=== PATIENT | female | born 1960 | race Caucasian/White ===

== ENCOUNTER → 2022-02-12 14:33 | Outpatient (CLI) | payer OTHER, MEDICAID, SELFPAY | PROVIDERS: Visit Provider Registered Nurse | DX: R10.9 Unspecified abdominal pain (principal) | CPT/HCPCS: 81002 ==

== ENCOUNTER → 2022-03-24 17:26 | Outpatient (CLI) | payer OTHER, MEDICAID, SELFPAY ==
[2022-03-24 18:13] LABS: Influenza A - CEPHEID Flu A NEGATIVE (NEGATIVE); Influenza B - CEPHEID Flu B NEGATIVE (NEGATIVE); Respiratory Syncytial Virus Negative (Negative)
[2022-03-24 18:23] LABS: COVID-19 CEPHEID 4-PLEX PCR Negative (Negative)
== END ==
PROVIDERS: Visit Provider Nurse Practitioner Family
DX: R05.9 Cough, unspecified (principal)
CPT/HCPCS: 0241U

== ENCOUNTER → 2022-03-24 17:35 | Outpatient (CLI) | payer OTHER, MEDICAID, SELFPAY ==
--- NOTE | 2022-03-24 17:41 | DI.RAD.S_ITS ---
PROCEDURE: XR CHEST 2V INDICATIONS: Cough TECHNIQUE: 2 views of the chest were acquired. COMPARISON: [facility], , CHEST 2 VIEW, 03/14/2016, 15:38. FINDINGS: Surgical changes and devices: None. Lungs and pleura: Lungs are clear. No pleural effusions or pneumothorax. Mediastinum: Mediastinal contours are normal. Heart size is normal. Bones and chest wall: No suspicious bony abnormalities. Soft tissues appear unremarkable. IMPRESSION: No acute cardiopulmonary pathology. Dictated by: Himanshu Dasilva M.D. on 03/25/2022 at 8:36 Approved by: Himanshu Dasilva M.D. on 03/25/2022 at 8:36
== END ==
PROVIDERS: PCP Physician Assistant; Referring Provider Nurse Practitioner Family; Visit Provider Nurse Practitioner Family
DX: R05.9 Cough, unspecified (principal)
CPT/HCPCS: 0241U; 71046

== ENCOUNTER 2022-04-21 15:53 | Emergency (ER) | payer OTHER, MEDICAID, SELFPAY ==
[2022-04-21 15:58] VITALS: BP 142/90; PULSE 81; RESP 22; TEMP 36.1; O2SAT 98; BMI 28.4
[2022-04-21 16:44] LABS: Bacteria Urine None Seen; Culture Indicated Urine Cult Not Indicated; RBC Urine None Seen (0-5/HPF); WBC Urine None Seen (0-5/HPF)
[2022-04-21 16:49] LABS: Influenza A - CEPHEID Flu A NEGATIVE (NEGATIVE); Influenza B - CEPHEID Flu B NEGATIVE (NEGATIVE); Respiratory Syncytial Virus Negative (Negative)
[2022-04-21 16:55] LABS: COVID-19 CEPHEID 4-PLEX PCR Negative (Negative)
--- NOTE | 2022-04-21 16:59 | ED_ITS ---
HPI - Nausea/Vomiting/Diarrhea <ARCHANA MarinelliP - Last Filed: 04/21/22 18:47> General Chief complaint: Nausea/Vomiting/Diarrhea Stated complaint: nausea/ears ringing/chills Time Seen by Provider: 04/21/22 16:47 History of Present Illness HPI Narrative: This is a 61-year-old female who presents to the emergency department complaining of 3 days of worsening nausea, vomiting, chills, with her ears ringing. She states that she used meth a few days ago, was clean previously but states that she may have meth withdrawals. She denies any symptoms like this with the nausea and spasms of her abdomen. She endorses that her vaginal discharge has been abnormal, she has mild vaginal itching, denies dysuria or urinary frequency but has lower pelvic discomfort with cramping. She states that she has a history of fibroids and tumors, denies any bleeding, denies any difficulty urinating, having bowel movements, denies vomiting. She denies fever. She denies flank pain, chest pain, shortness of breath or wheezing. Patient states that she no longer takes Abilify for her mood, she now takes Zyprexa at night with clonidine for her anxiety, states that she had a prescription of lorazepam times 10 tabs for last month but she use them all and is requesting a 1 time dose of something for anxiety. Related Data Home Medications Medication Instructions Recorded Confirmed aripiprazole 15 mg tablet (Abilify) 15 mg PO Q DAY ##0 03/22/12 03/24/22 quetiapine 50 mg tablet,extended 200 mg PO HS ##0 12/03/12 03/24/22 release 24 hr (Seroquel XR) Previous Rx's Medication Instructions Recorded albuterol sulfate 90 mcg/actuation 0 puff INH Q4HP PRN #1 ea 03/14/16 aerosol inhaler (Ventolin HFA) azithromycin 250 mg tablet 250 mg PO SEE INSTRUCTIONS #6 tabs 03/14/16 (Zithromax) diclofenac sodium 1 % topical gel 2 g topical QID PRN back pain #100 02/12/22 (Voltaren Arthritis Pain) grams methocarbamol 500 mg tablet 500 mg PO TID PRN muscle spasms 02/12/22 #20 tabs lorazepam 1 mg tablet 0.5 - 1 mg PO BID PRN anxiety #10 04/21/22 tabs omeprazole 20 mg capsule,delayed 20 mg PO DAILY #30 caps 04/21/22 release ondansetron 4 mg disintegrating 4 mg PO Q8H PRN nausea and 04/21/22 tablet vomiting #14 tabs sucralfate 1 gram tablet (Carafate) 1 g PO BID PRN upper abdominal 04/21/22 pain/burning #60 tabs Allergies Allergy/AdvReac Type Severity Reaction Status Date / Time codeine Allergy Unknown Unverified 04/21/22 16:02 hydrocodone Allergy Unknown ITCHY Unverified 04/21/22 16:02 Review of Systems <TRACEY Marinelli - Last Filed: 04/21/22 18:47> Review of Systems Narrative: Review of systems is negative for acute abnormalities unless otherwise noted in HPI Patient History <TRACEY Marinelli - Last Filed: 04/21/22 18:47> Social History Smoking Status: Never smoker Smoking Status: Never smoker Substance Use Type: marijuana and methamphetamine Exam <TRACEY Marinelli - Last Filed: 04/21/22 18:47> Narrative Exam Narrative: Reviewed vitals signs and nursing notes. General: cooperative, in no acute distress, well groomed, patient is anxious and tearful and fidgety HEENT: symmetrical facial expressions, moist mucous membranes Cardiovascular: regular rate and rhythm, no peripheral edema, warm extremities Respiratory: normal effort, able to speak in complete sentences, without wheezing, stridor, or abnormal breath sounds. No retractions or tachypnea. GI: abdomen soft, nontender to palpation, nondistended, without masses, rebound tenderness or exquisite tenderness with exam. [address] Light: Scant amount of vaginal secretions, obtained wet mount and is pending, no erythema or rash, MSK: moves all extremities, neurovascularly intact, no weakness, normal tone Skin: brisk capillary refill, without pallor or erythema, no rash Neuro: normal speech and cognition, A&O x3, ambulatory, clear speech Psych: mental status is anxious, pleasant and cooperative Initial Vital Signs Initial Vital Signs: Vital Signs Temperature 97.0 F L 04/21/22 15:58 Pulse Rate 81 04/21/22 15:58 Respiratory Rate 22 04/21/22 15:58 Blood Pressure 142/90 H 11/23/22 15:58 Pulse Oximetry 98 04/21/22 15:58 Oxygen Delivery Method 04/21/22 15:58 <Aristides Bauer DO - Last Filed: 04/22/22 01:51> Initial Vital Signs Initial Vital Signs: Vital Signs Temperature 97.0 F L 04/21/22 15:58 Pulse Rate 81 04/21/22 15:58 Respiratory Rate 22 04/21/22 15:58 Blood Pressure 142/90 H 04/21/22 15:58 Pulse Oximetry 98 04/21/22 15:58 Oxygen Delivery Method 04/21/22 15:58 Course <TRACEY Marinelli - Last Filed: 04/21/22 18:47> Orders Ordered: ED Orders 04/21/22 16:58 Wet Prep Tric BV Janel Stat Discontinued Medications Al Hydrox/Mg Hydrox/Simethicone 20 ml/ Lidocaine HCl 15 ml 0 ml PO NOW ONE Stop: 04/21/22 17:24 Last Admin: 04/21/22 17:37 Dose: 35 ml Documented By: YOLANDA Lorazepam (Lorazepam 0.5 Mg Tablet) 1 mg PO NOW ONE Stop: 04/21/22 16:59 Last Admin: 04/21/22 17:16 Dose: 1 mg Documented By: YOLANDA Ondansetron HCl (Ondansetron 4 Mg Odt) 4 mg SL NOW ONE Stop: 04/21/22 17:00 Last Admin: 04/21/22 17:16 Dose: 4 mg Documented By: YOLANDA Pantoprazole Sodium (Pantoprazole Dr 20 Mg Tablet) 20 mg PO NOW ONE Stop: 04/21/22 17:24 Last Admin: 04/21/22 17:37 Dose: 20 mg Documented By: YOLANDA Vital Signs Vital signs: Vital Signs - 8 hr 04/21/22 15:58 Temperature 97.0 F L Pulse Rate 81 Respiratory Rate 22 Blood Pressure 142/90 H Pulse Oximetry 98 Oxygen Delivery Method Room Air <Aristides Bauer DO - Last Filed: 04/22/22 01:51> Orders Ordered: ED Orders 04/21/22 16:58 Wet Prep Tric BV Janel Stat Discontinued Medications Al Hydrox/Mg Hydrox/Simethicone 20 ml/ Lidocaine HCl 15 ml 0 ml PO NOW ONE Stop: 11/23/22 17:24 Last Admin: 04/21/22 17:37 Dose: 35 ml Documented By: YOLANDA Lorazepam (Lorazepam 0.5 Mg Tablet) 1 mg PO NOW ONE Stop: 04/21/22 16:59 Last Admin: 04/21/22 17:16 Dose: 1 mg Documented By: YOLANDA Ondansetron HCl (Ondansetron 4 Mg Odt) 4 mg SL NOW ONE Stop: 04/21/22 17:00 Last Admin: 04/21/22 17:16 Dose: 4 mg Documented By: YOLANDA Pantoprazole Sodium (Pantoprazole Dr 20 Mg Tablet) 20 mg PO NOW ONE Stop: 04/21/22 17:24 Last Admin: 04/21/22 17:37 Dose: 20 mg Documented By: YOLANDA Vital Signs Vital signs: Vital Signs - 8 hr 04/21/22 15:58 Temperature 97.0 F L Pulse Rate 81 Respiratory Rate 22 Blood Pressure 142/90 H Pulse Oximetry 98 Oxygen Delivery Method Room Air MDM - Nausea/Vomiting/Diarrhea <TRACEY Marinelli - Last Filed: 04/21/22 18:47> Lab Data Labs: Lab Results 04/21/22 04/21/22 04/21/22 Range/Units 16:04 16:17 16:17 Urine RBC None seen (0-5/HPF) Urine WBC None seen (0-5/HPF) Urine Bacteria None seen (None) Ur Culture Indicated? Cult not indicated Ur Chlamydia DNA (PCR) Not detected SARS-CoV-2 (PCR) Negative (Negative) Influenza A (RT-PCR) Flu a negative (NEGATIVE) Influenza B (RT-PCR) Flu b negative (NEGATIVE) RSV (PCR) Negative (Negative) N gonorrhoeae DNA (PCR) Not detected Urine Dip Bedside Urine Glucose Negative Bedside Urine Bilirubin - Negative Bedside Urine Ketone - Negative Urine Specific Granite 1.010 Bedside Urine Occult Blood + Bedside Urine pH 6.0 Bedside Urine Protein - Negative Bedside Urine Urobilinogen - Negative Bedside Urine Nitrite - Negative Bedside Urine Leukocytes - Negative Esterase MDM Narrative Medical decision making narrative: This is a 61-year-old female who presents to the emergency department complaining of anxiety, epigastric pain, abdominal cramping, 3 days with vomiting after using methamphetamine. Patient states that she is concerned about ovarian cancer as she has a history of this but denies any abnormal vaginal discharge, pelvic pain, changes to her stool, or worsening pain. UA was negative for infection, vaginal exam was negative for abnormal finding on the wet mount, gonorrhea and chlamydia are still pending. Patient was given a GI cocktail which she stated helped her symptoms. She is a smoker, drinks coffee, states that she is been dry heaving and feeling nauseated with any food. She was given Protonix as well with Zofran and her nausea improved. Gonorrhea and chlamydia came back negative, respiratory panel was negative for COVID, influenza a, B and RSV. Patient was able to tolerate p.o. prior to leaving and states that her symptoms have improved overall. This is most likely gastritis or gastric ulcer but could also be esophageal ulcer, H pylori, GERD, viral syndrome, withdrawals from methamphetamine, panic attack, exacerbation of anxiety, acute cystitis, pelvic inflammatory disease, cholecystitis, pancreatitis, colitis or other intra-abdominal pathology. Patient denies fever, chills denies any stool changes. I encourage patient to follow-up with her psychiatrist about her medications, she was given a 10 dose supply of lorazepam as she states she ran out of hers and was having a panic attack while she was here today. Her epigastric pain is most likely related to gastric ulcer or gastritis, it could also be H pylori and I encouraged her to follow-up with her PCP for outpatient testing as needed and for improvement of her symptoms. She understands to come back to the emergency department if she has worsening, not tolerating p.o., fever or chills. No peritoneal signs on abdominal exam. Patient remains p.o. tolerant. Serial abdominal exam without increase in abdominal pain. Given history and exam, low suspicion for acute abdominal process, such as acute cholecystitis, pancreatitis, perforated viscus, atypical appendicitis, colitis, diverticulitis or torsion. Extensive conversation about ER return precautions and need for close follow-up. Patient is appropriate and amenable to discharge home. Vital signs are stable on repeat examination is unremarkable. Patient has been informed of results. Patient has been given strict return to ER precautions for any new or worsening symptoms. Patient understands to follow up closely with outpatient providers as instructed. Patient understands plan and agrees to discharge home. All questions and concerns answered at this time. <Aristides Bauer, DO - Last Filed: 04/22/22 01:51> Lab Data Labs: Lab Results 1104/21/22 04/21/22 Range/Units 16:04 16:17 16:17 Urine RBC None seen (0-5/HPF) Urine WBC None seen (0-5/HPF) Urine Bacteria None seen (None) Ur Culture Indicated? Cult not indicated Ur Chlamydia DNA (PCR) Not detected SARS-CoV-2 (PCR) Negative (Negative) Influenza A (RT-PCR) Flu a negative (NEGATIVE) Influenza B (RT-PCR) Flu b negative (NEGATIVE) RSV (PCR) Negative (Negative) N gonorrhoeae DNA (PCR) Not detected Urine Dip Bedside Urine Glucose Negative Bedside Urine Bilirubin - Negative Bedside Urine Ketone - Negative Urine Specific Granite 1.010 Bedside Urine Occult Blood + Bedside Urine pH 6.0 Bedside Urine Protein - Negative Bedside Urine Urobilinogen - Negative Bedside Urine Nitrite - Negative Bedside Urine Leukocytes - Negative Esterase Discharge Plan Departure Patient Disposition: Home Clinical Impression: Anxiety, Acute epigastric pain Nausea & vomiting Qualifiers: Vomiting type: unspecified Qualified Code(s): R11.2 - Nausea with vomiting, unspecified Activity Restrictions/Additional Instructions: *You have been diagnosed with epigastric pain which is most likely related to heartburn, it could be gastritis or a gastric/esophageal, or duodenal ulcer. Ulcers develop with exposure to increased acid, this happens to people who smoke, drink caffeine, are under lot of stress, and it sounds like you have had all of the symptoms. If you develop fever and chills, worsening pain despite using these medications or unable to keep anything down, please come back to the emergency department for a further evaluation. At that point we would do blood work and imaging. I encourage you to follow-up with Vonnie Garcia as she will be the one to get you into testing for a stomach ulcer. Please stay hydrated, use Zofran as needed for nausea and vomiting, take ome prazole 1st thing in the morning every day, please use Ativan as needed for anxiety and Carafate to help coat your stomach when it is painful. Avoid using ibuprofen in the near future. *What to do: *Please continue to take your regular medications as directed. [ x New medication prescriptions sent to your pharmacy: [ [facility]] [ ] New medication written as a paper prescription [ ] No new medications given *Please follow up with your primary care provider in 2-3 days, call for an appointment. Let them know you were seen in the Emergency Department and that we asked that you be seen for follow-up. We will electronically transmit a record of today's note if your PCP is in our system *If you do not have a primary care provider please contact [phone] to establish care with one of the [facility] primary care providers. *Return to Emergency Department if you should have any new, worsening, or concerning symptoms, such as [fever greater than 101F, chills, worsening pain, persistent vomiting or other bothersome symptoms]. Prescriptions: New lorazepam 1 mg tablet 0.5 - 1 mg PO BID PRN (Reason: anxiety) Qty: 10 0RF sucralfate [Carafate] 1 gram tablet 1 g PO BID PRN (Reason: upper abdominal pain/burning) Qty: 60 0RF omeprazole 20 mg capsule,delayed release(DR/EC) 20 mg PO DAILY Qty: 30 3RF ondansetron 4 mg tablet,disintegrating 4 mg PO Q8H PRN (Reason: nausea and vomiting) Qty: 14 0RF No Action methocarbamol 500 mg tablet 500 mg PO TID PRN (Reason: muscle spasms) Qty: 20 0RF diclofenac sodium [Voltaren Arthritis Pain] 1 % gel 2 g topical QID PRN (Reason: back pain) Qty: 100 0RF Rx Instructions: apply to single elbow, wrist or hand; for hand includes palm/fingers/back of hand aripiprazole [Abilify] 15 MG tablet 15 mg PO Q DAY Qty: 0 quetiapine [Seroquel XR] 50 MG tablet extended release 24 hr 200 mg PO HS Qty: 0 azithromycin [Zithromax] 250 MG tablet 250 mg PO SEE INSTRUCTIONS Qty: 6 0RF albuterol sulfate [Ventolin HFA] 90 MCG/PUFF HFA aerosol inhaler 0 puff INH Q4HP PRNQty: 1 0RF Referrals: Regi Gaines ARNP [Non-Staff] - Priya Garcia PA-C [Primary Care Provider] - Visit Report Forms: Patient Portal/API <Aristides Bauer DO - Last Filed: 04/22/22 01:51> Cosign ED Attending Rimaature Attestation: I was immediately available in the department for consultation. This documentation has been reviewed and I agree with assessment and plan. Supervised by Aristides Bauer, DO
[2022-04-21] MEDS: ONDANSETRON 4 MG ODT SL (17:16)
[2022-04-21] MEDS: LORazepam 0.5 MG TABLET 1 MG PO (17:16)
[2022-04-21] MEDS: PANTOPRAZOLE DR 20 MG TABLET PO (17:37)
[2022-04-21] MEDS: MAG HYDROX/ALUMINUM/SIMETH SUS 20 ML, LIDOCAINE VISCOUS 2% 15 ML PO (17:37)
[2022-04-21 18:40] LABS: Urine Chlamydia NOT DETECTED; Urine N gonorrhoeae NOT DETECTED
== END 2022-04-21 17:54 | disposition home or self-care (01) ==
PROVIDERS: Emergency Medicine; Emergency Provider Nurse Practitioner Critical Care Medicine; PCP Physician Assistant
DX: R10.13 Epigastric pain (principal); R11.2 Nausea with vomiting, unspecified; F41.9 Anxiety disorder, unspecified; H93.13 Tinnitus, bilateral; Z20.822 Contact with and (suspected) exposure to COVID-19
CPT/HCPCS: 0241U; 81003; 81015; 87210; 87491; 87591; 99283

== ENCOUNTER → 2022-05-27 16:23 | Outpatient (CLI) | payer OTHER, MEDICAID, SELFPAY | PROVIDERS: PCP Physician Assistant; Visit Provider Registered Nurse | DX: N39.0 Urinary tract infection, site not specified (principal) | CPT/HCPCS: 81002; 87086 ==

== ENCOUNTER → 2023-02-07 16:27 | Outpatient (CLI) | payer OTHER, MEDICAID, SELFPAY | PROVIDERS: PCP Physician Assistant; Visit Provider Physician Assistant | DX: M54.9 Dorsalgia, unspecified (principal) | CPT/HCPCS: 81002; 82948; 87086 ==

== ENCOUNTER 2023-02-13 18:02 | Emergency (ER) | payer OTHER, MEDICAID, SELFPAY ==
[2023-02-13] VITALS (7 sets, daily range): BP systolic 131–168; BP diastolic 73–86; PULSE 67–94; RESP 16–18; TEMP 36.3; O2SAT 93–96; BMI 29.2
--- NOTE | 2023-02-13 18:39 | ED_ITS ---
HPI - Back Pain/Injury General Chief Complaint: Back Pain/Injury Stated Complaint: sob bad lower back pain for a week Time Seen by Provider: 02/13/23 18:08 Source: patient History of Present Illness HPI Narrative: 62-year-old woman with a history of prior opioid and alcohol use disorder currently stable followed by khoi neely and on Suboxone. Hypothyroidism, bipolar disorder and ADHD presents complaining of right flank and posterior rib pain. It has been bothering her for at least 3 weeks and getting worse she was seen at urgent care and they [id number] ER evaluation at that time which she did not follow through with. As the pain has continued she is presenting now. She notes no fevers, cough, chills. She states she has been having regular ximena l movements. She has not been gaining or losing weight. She notes that she has had increased vaginal itching as well as frequency and urgency urinating. She has not noticed any hematuria. She has not been sexually active for a number of years does not describe any vaginal discharge. She states that she took Diflucan 3 days ago and noticed only minimal improvement in overall symptoms. Additionally, she notes that 6 years or so ago she was diagnosed with a pulmonary nodule and has not followed up on that. She continues to be a heavy smoker and is interested in discussing stopping this and prescription for nicotine patches. Related Data Home Medications Medication Instructions Recorded Confirmed buprenorphine 8 mg-naloxone 2 mg 20 mg sublingual DAILY 02/07/23 02/07/23 sublingual film (Suboxone) bupropion HCl 300 mg 24 hr tablet, 300 mg PO DAILY 02/07/23 02/07/23 extended release clonidine HCl 0.1 mg tablet 0.1 mg PO BID 02/07/23 02/07/23 lisdexamfetamine 60 mg capsule 60 mg PO QAM 02/07/23 02/07/23 (Vyvanse) Previous Rx's Medication Instructions Recorded methocarbamol 500 mg tablet 500 mg PO TID PRN muscle spasms 02/12/22 #20 tabs lorazepam 1 mg tablet 0.5 - 1 mg PO BID PRN anxiety #10 04/21/22 tabs ondansetron 4 mg disintegrating 4 mg PO Q8H PRN nausea and 04/21/22 tablet vomiting #14 tabs Allergies Allergy/AdvReac Type Severity Reaction Status Date / Time codeine Allergy Unknown Unverified 02/07/23 16:46 hydrocodone Allergy Unknown ITCHY Unverified 02/07/23 16:46 Review of Systems Review of Systems Narrative: Pertinent positive and negative findings as per HPI Patient History Medical History (Updated 02/13/23 @ 20:41 by Shavonne Hoffman MD) ADHD Chronic back pain Depression Fibroids Hepatitis C Herpes History of bipolar disorder Hypothyroidism PTSD (post-traumatic stress disorder) Substance abuse Surgical History Anesthesia History of section (~1988) History of knee surgery Lung nodule Status post breast lumpectomy Family History Mother Cancer Diabetes mellitus Hyperlipidemia Hypertension Sister Hypertension Hyperlipidemia Social History Smoking Status: Current every day smoker Smoking Status: Current every day smoker Substance Use Type: does not use Exam Initial Vital Signs Initial Vital Signs: Vital Signs Temperature 97.4 F L 02/13/23 18:08 Pulse Rate 74 02/13/23 18:08 Respiratory Rate 16 02/13/23 18:08 Blood Pressure 131/86 02/13/23 18:08 Pulse Oximetry 96 02/13/23 18:08 Oxygen Delivery Method Room Air 02/13/23 18:08 General: Healthy appearing, in no acute distress. Able to give a complete and coherent history. Well-nourished well-developed HEENT: Moist mucous membranes, normal sclera with reactive pupils, Neck: No JVD, no cervical adenopathy Respiratory: Lungs are clear to auscultation, no wheezing no rales no rhonchi. Full and symmetrical air movement Cardiac: Regular rate and rhythm no murmurs no bruits Chest: Significant tenderness over posterior right ribs without skin changes or obvious point tenderness over any particular rib. No tenderness over thoracic spine at this level Abdomen: Soft, minor tenderness in the right flank without rebound or guardi ng., good bowel tones, Skin: Warm and dry, no rashes Neurologic: Grossly neurologically intact with no obvious asymmetries or abnormalities Extremities: No trauma, well perfused Genital exam: Very dry vaginal mucosa with no discharge. Vaginal introitus is significantly atrophied and a single finger bimanual exam was all that I was able to do. She did not have cervical motion tenderness and no significant tenderness with palpation aside from vaginal stretching Psych: Cooperative, appropriate insight and affect Course Orders Ordered: ED Orders 02/13/23 18:27 Chlamydia Gonorrhea PCR -URINE Stat UA Complete [Urinalysis and Microscopic] Stat 02/13/23 18:55 Wet Prep Tric BV Janel Stat 02/13/23 19:04 CT chest abd pel w con Stat 02/13/23 19:13 Complete Blood Count AUTO DIFF Stat Comprehensive Metabolic Panel Stat T4 Total Thyroxine Stat Thyroid Stimulating Hormone Stat Vital Signs Vital signs: Vital Signs - 8 hr 02/13/23 18:08 02/13/23 19:22 02/13/23 19:22 Temperature 97.4 F L Pulse Rate 74 67 Respiratory Rate 16 Blood Pressure 131/86 131/75 Pulse Oximetry 96 95 Oxygen Delivery Method Room Air 02/13/23 19:30 02/13/23 19:30 02/13/23 19:48 Temperature Pulse Rate 68 Respiratory Rate 18 Blood Pressure 134/73 168/75 H Pulse Oximetry 94 Oxygen Delivery Method 02/13/23 19:48 02/13/23 20:00 02/13/23 20:01 Temperature Pulse Rate 76 94 H Respiratory Rate Blood Pressure 159/78 H Pulse Oximetry 93 95 Oxygen Delivery Method 02/13/23 20:01 Temperature Pulse Rate 93 H Respiratory Rate Blood Pressure Pulse Oximetry 93 Oxygen Delivery Method Room Air MDM - Back Pain/Injury Lab Data 02/13/23 19:13 02/13/23 19:13 Labs: Lab Results 02/13/23 02/13/23 02/13/23 Range/Units 18:27 19:13 19:13 WBC 7.7 (4.5-11.0) X10^3/uL RBC 4.49 (4.0-5.2) X10^6/uL Hgb 13.9 (12.0-16.0) g/dL Hct 39.2 (36-46) % MCV 87.2 (80-100) fL MCH 30.9 (26-34) PG MCHC 35.5 (30-36) % RDW 12.7 (11.6-14.8) % Plt Count 294 (150-400) X10^3/uL Neut % (Auto) 44.4 L (50-75) % Lymph % (Auto) 42.8 H (25-40) % [place] % (Auto) 9.8 (3-14) % Eos % (Auto) 2.2 (2-4) % Baso % (Auto) 0.8 (0-2) % Neut # (Auto) 3400 (6322-6250) /uL Lymph # (Auto) 3300 (4199-2653) /uL [place] # (Auto) 800 (0-900) /uL Eos # (Auto) 200 (0-450) /uL Baso # (Auto) 100 (0-100) /uL Sodium 136 L (137-145) mmol/L Potassium 3.9 (3.4-5.1) mmol/L Chloride 100 (98-107) mmol/L Carbon Dioxide 32 (22-32) mmol/L BUN 17 (7-17) mg/dL Creatinine 0.84 (0.52-1.04) mg/dL Estimated GFR > 60 (>60) mL/min BUN/Creatinine Ratio 20.2 (6-22) Glucose 81 (80-110) mg/dL Calcium 10.0 (8.4-10.2) mg/dL Total Bilirubin 0.4 (0.2-1.3) mg/dL AST 28 (14-36) IU/L ALT 28 (<35) IU/L Alkaline Phosphatase 79 (38-126) U/L Total Protein 7.6 (6.3-8.2) g/dL Albumin 4.4 (3.5-5.0) g/dL Globulin 3.2 (1.7-4.1) g/dL Albumin/Globulin Ratio 1.4 (1.0-2.8) Thyroxine (T4) (5.5-11.0) ug/dL Urine Color Yellow Urine Appearance Clear Urine pH 8.5 H (4.5-8.0) Ur Specific [place] 1.015 (1.000-1.035) Urine Protein Negative (Negative) Urine Glucose (UA) Negative (Negative) g/dL Urine Ketones Negative (NEGATIVE) Urine Occult Blood Trace-intact (Negative) Urine Nitrate Negative (Negative) Urine Bilirubin Negative (NEGATIVE) Urine Urobilinogen 1.0 (0.2) E.U./dL Ur Leukocyte Esterase Negative (NEGATIVE) Urine RBC 5-10/hpf H (0-5/HPF) Urine WBC None seen (0-5/HPF) Ur Squamous Epith Cells None seen (0-5/HPF) Urine Bacteria None seen (None) Ur Culture Indicated? Cult not indicated 02/13/23 Range/Units 19:13 WBC (4.5-11.0) X10^3/uL RBC (4.0-5.2) X10^6/uL Hgb (12.0-16.0) g/dL Hct (36-46) % MCV (80-100) fL MCH (26-34) PG MCHC (30-36) % RDW (11.6-14.8) % Plt Count (150-400) X10^3/uL Neut % (Auto) (50-75) % Lymph % (Auto) (25-40) % [place] % (Auto) (3-14) % Eos % (Auto) (2-4) % Baso % (Auto) (0-2) % Neut # (Auto) (3545-0356) /uL Lymph # (Auto) (8516-4734) /uL [place] # (Auto) (0-900) /uL Eos # (Auto) (0-450) /uL Baso # (Auto) (0-100) /uL Sodium (137-145) mmol/L Potassium (3.4-5.1) mmol/L Chloride (98-107) mmol/L Carbon Dioxide (22-32) mmol/L BUN (7-17) mg/dL Creatinine (0.52-1.04) mg/dL Estimated GFR (>60) mL/min BUN/Creatinine Ratio (6-22) Glucose (80-110) mg/dL Calcium (8.4-10.2) mg/dL Total Bilirubin (0.2-1.3) mg/dL AST (14-36) IU/L ALT (<35) IU/L Alkaline Phosphatase (38-126) U/L Total Protein (6.3-8.2) g/dL Albumin (3.5-5.0) g/dL Globulin (1.7-4.1) g/dL Albumin/Globulin Ratio (1.0-2.8) Thyroxine (T4) 9.90 (5.5-11.0) ug/dL Urine Color Urine Appearance Urine pH (4.5-8.0) Ur Specific [place] (1.000-1.035) Urine Protein (Negative) Urine Glucose (UA) (Negative) g/dL Urine Ketones (NEGATIVE) Urine Occult Blood (Negative) Urine Nitrate (Negative) Urine Bilirubin (NEGATIVE) Urine Urobilinogen (0.2) E.U./dL Ur Leukocyte Esterase (NEGATIVE) Urine RBC (0-5/HPF) Urine WBC (0-5/HPF) Ur Squamous Epith Cells (0-5/HPF) Urine Bacteria (None) Ur Culture Indicated? MDM Narrative Medical decision making narrative: CC: Pain in the right side posteriorly lower lung pritchett down into the right lower quadrant without any skin changes Complicating co-morbidities: History of a pulmonary nodule, smoker, hepatitis- C, on Suboxone and in stable recovery from opiate use disorder significant vaginal atrophy with complaints of dysuria and increasing urinary incontinence Data collected from: patient, Social determinants of health that may influence the patients condition: Has not accessed much medical care Medical records reviewed: Gynecology note from July of 2022 is reviewed. Walk-in clinic and primary care notes were also reviewed Differential considered: Musculoskeletal pain, renal abnormality, obstructing kidney stone, lung pathology related to prior lung nodule, pelvic inflammatory disease, vaginal yeast Exam documented above, pertinent findings include: Significantly tender to any type of palpation or compression of right lower ribs, flank extending into the right lower quadrant. Alginate mucosa is quite dry there is no discharge Lab Test results independently reviewed as above. Pertinent findings: CBC is unremarkable Metabolic panel is reassuring Thyroid is appropriate Vaginal wet mount does not show yeast, BV or Trichomonas Gonorrhea and chlamydia testing are pending Imaging studies independently reviewed: CT scan of the chest and abdomen do not show any significant underlying pathology that would explain her pain aside from moderate stool overload. Treatments: She is sent home with magnesium citrate Re-evaluations: do not suspect yeast infection based on physical exam however she does have significant vaginal atrophy and that alone may be causing some of her vaginal symptoms. 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 May also help with her complaints of increasing urinary incontinence. Gonorrhea chlamydia wet mount are all tested. Given her hep C, prior lifestyle choices continued tobacco use and family history of ovarian cancer with this on presentation of pain along the entire right posterior side that is getting worse over the last number of weeks and further evaluation as warranted and basic blood work along with a CT scan of both the chest in the abdomen or ordered. She did have pelvic ultrasound done February of 2022 that showed 2 small intramural fibroids normal-size uterus and unimpressive ovaries CT scan does not show significant pathology aside from constipation. Given the fact that she does take 60 mg of buprenorphine this isn't entirely unexpected. We will send her home with a bottle of magnesium citrate to try and alleviate current symptoms and recommend that she begin taking lactulose which she has at home daily to prevent additional problems. Discharge Plan Departure Patient Disposition: Home Clinical Impression: Atrophy of vagina Constipation Qualifiers: Constipation type: drug induced constipation Qualified Code(s): K59.03 - Drug induced constipation Abdominal pain Qualifiers: Abdominal location: generalized Qualified Code(s): R10.84 - Generalized abdominal pain Instructions: DI for Constipation Activity Restrictions/Additional Instructions: Thank you for coming in today I do not find any life-threatening abnormalities. There is no sign of cancers, tumors masses or infection in your chest or your abdomen. You do have quite a bit of stool and I suspect that is what is causing your discomfort. Suboxone can definitely make constipation worse. I would recommend that you use the lactulose that you have available at home daily to prevent further problems I have given you a bottle of magnesium citrate to drink when you get home. This pulse water into your colon and helps get everything cleaned out. If you do not feel like you are getting to mostly clean diarrhea, a couple doses of lactulose may also be helpful I would recommend that you follow-up with your OBGYN regarding your vaginal dryness and discomfort. There is no evidence of yeast infection, bladder infection or other abnormalities besides significant vaginal dryness If you find that you are getting worse or develop any new symptoms, please feel free to return to the emergency department for further evaluation. Prescriptions: No Action methocarbamol 500 mg tablet 500 mg PO TID PRN (Reason: muscle spasms) Qty: 20 0RF clonidine HCl 0.1 mg tablet 0.1 mg PO BID Vyvanse 60 mg capsule 60 mg PO QAM buprenorphine-naloxone [Suboxone] 8-2 mg film 20 mg sublingual DAILY bupropion HCl 300 mg tablet extended release 24 hr 300 mg PO DAILY lorazepam 1 mg tablet 0.5 - 1 mg PO BID PRN (Reason: anxiety) Qty: 10 0RF ondansetron 4 mg tablet,disintegrating 4 mg PO Q8H PRN (Reason: nausea and vomiting) Qty: 14 0RF Referrals: Priya Garcia PA-C [Primary Care Provider] - Stand Alone Forms: Patient Portal/API
--- NOTE | 2023-02-13 19:04 | DI.CT.S_ITS ---
PROCEDURE: CT CHEST ABD PEL W CON INDICATIONS: right post rib/lung pain, Right flank and RLQ pain TECHNIQUE: After the administration of oral and intravenous contrast, axial sections acquired from the supraclavicular neck to the pubic symphysis. Coronal and sagittal reformats were performed. For radiation dose reduction, the following was used: automated exposure control, adjustment of mA and/or kV according to patient size. COMPARISON: [facility], CT, CT LOW DOSE LUNG CA SCREENING, 12/21/2021, 10:49. [facility], CT, CT ABDOMEN PELVIS WITH CONTRAST, 01/07/2022, 12:13. FINDINGS: Image quality: Excellent. CHEST: Lower Neck: No enlarged lymph nodes. Thyroid: Within normal limits. Axillae: No enlarged lymph nodes. Chest Wall: Scrutiny is given to the right posterior ribs. No focal rib abnormality can be seen at this site. No rib abnormalities are seen elsewhere. Lungs and Airways: No consolidation or suspicious nodules. Note is made of accessory fissures involving the right upper lung. Mild subpleural bleb formation can be seen. Pleura: No pneumothorax or pleural effusions. Heart: Heart size is normal. No pericardial effusion. Thoracic Vessels: The aorta and pulmonary arteries demonstrate normal size. Mediastinum and Ligia: No enlarged lymph nodes. Esophagus: No wall thickening. No hiatal hernia. ABDOMEN: Liver: Diffuse fatty liver infiltration is noted. Gallbladder: Unremarkable. Biliary ducts: Unremarkable. Pancreas: Unremarkable. Spleen: Unremarkable. Adrenal Glands: Unremarkable. Kidneys and Ureters: Areas of focal volume loss are again seen involving both kidneys, left worse than right. The kidneys demonstrate normal size and enhance symmetrically. There is no hydronephrosis. Stomach and Bowel: Stomach, small bowel loops, and colon are unremarkable. There is a moderate amount of stool seen within the colon. Peritoneum: No abnormal intraperitoneal fluid. No free air. Ventral Wall: A mild periumbilical hernia is seen, containing fat. Abdominal Nodes: No retroperitoneal or mesenteric adenopathy by size criteria. Vessels: Aorta and inferior vena cava are normal in size. PELVIS: Pelvic Organs: The uterus appears normal for age. No adnexal masses are seen. Bladder: Unremarkable. Pelvic Nodes: No enlarged lymph nodes. Miscellaneous: No inguinal hernias are seen. Bones: Unremarkable. IMPRESSION: No right rib abnormalities are seen. No significant pulmonary abnormality is seen. There is a moderate amount of stool seen within the colon. Please correlate with an underlying history of constipation. Focal volume loss can be seen involving both kidneys, left worse than right. Please correlate with prior episodes of infarction or infection. Additional findings: Accessory fissures involving the right upper lung Fatty liver infiltration Mild fat containing periumbilical hernia Dictated by: Levon Carmona M.D. on 02/13/2023 at 19:06 Approved by: Levon Carmona M.D. on 02/13/2023 at 19:10
[2023-02-13 19:20] LABS: Add Manual Diff / Slide Review NO; Basophils Absolute Auto 100 /uL (0-100); Basophils Percent Auto 0.8 % (0-2); Eosinophils Absolute Auto 200 /uL (0-450); Eosinophils Percent Auto 2.2 % (2-4); Hematocrit 39.2 % (36-46); Hemoglobin 13.9 g/dL (12.0-16.0); Lymphocytes Absolute Auto 3300 /uL (1100-4500); Lymphocytes Percent Auto 42.8 % (25-40); Mean Corpuscular HGB Conc 35.5 % (30-36); Mean Corpuscular Hemoglobin 30.9 PG (26-34); Mean Corpuscular Volume 87.2 fL (80-100); Monocytes Absolute Auto 800 /uL (0-900); Monocytes Percent Auto 9.8 % (3-14); Neutrophils Absolute Auto 3400 /uL (1500-7000); Neutrophils Percent Auto 44.4 % (50-75); Platelet Count 294 X10^3/uL (150-400); Red Blood Cell Count 4.49 X10^6/uL (4.0-5.2); Red Cell Distribution Width 12.7 % (11.6-14.8); White Blood Cell Count 7.7 X10^3/uL (4.5-11.0)
[2023-02-13 19:22] LABS: Appearance Urine UA CLEAR; Bilirubin Urine UA NEGATIVE (NEGATIVE); Color Urine UA YELLOW; Glucose Urine UA NEGATIVE (Negative); Ketones Urine UA NEGATIVE (NEGATIVE); Leukocyte Esterase Urine UA NEGATIVE (NEGATIVE); Nitrite Urine UA NEGATIVE (Negative); Occult Blood Urine UA TRACE-INTACT (Negative); Protein Urine UA NEGATIVE (Negative); Specific Gravity Urine UA 1.015 (1.000-1.035)
[2023-02-13 19:31] LABS: Alanine Aminotransferase 28 IU/L (<35); Albumin 4.4 g/dL (3.5-5.0); Albumin Globulin Ratio 1.4 (1.0-2.8); Alkaline Phosphatase 79 U/L (38-126); Aspartate Aminotransferase 28 IU/L (14-36); BUN Creatinine Ratio 20.2 (6-22); Bilirubin Total 0.4 mg/dL (0.2-1.3); Blood Urea Nitrogen 17 mg/dL (7-17); Carbon Dioxide 32 mmol/L (22-32); Chloride 100 mmol/L (98-107); Estimated Glomerular Filt Rate > 60 mL/min (>60); Globulin 3.2 g/dL (1.7-4.1); Glucose 81 mg/dL (80-110); HEMOLYSIS < 15 (0-50); Potassium 3.9 mmol/L (3.4-5.1); Sodium 136 mmol/L (137-145); Total Protein 7.6 g/dL (6.3-8.2)
[2023-02-13 19:31] LABS: Bacteria Urine None Seen; Culture Indicated Urine Cult Not Indicated; RBC Urine 5-10/HPF (0-5/HPF); Squamous Epithelial Cell Urine None Seen (0-5/HPF); WBC Urine None Seen (0-5/HPF); pH Urine UA 8.5 (4.5-8.0)
[2023-02-13 20:11] LABS: Thyroid Stimulating Hormone 1.98 uIU/mL (0.47-4.68)
[2023-02-13 20:47] LABS: Urine N gonorrhoeae NOT DETECTED
[2023-02-13 20:55] LABS: Urine Chlamydia NOT DETECTED
[2023-02-13] MEDS: MAGNESIUM CITRATE 300 ML SOLUTION PO (20:57)
== END 2023-02-13 21:01 | disposition home or self-care (01) ==
PROVIDERS: Emergency Provider Emergency Medicine; PCP Physician Assistant
DX: R10.84 Generalized abdominal pain (principal); K59.03 Drug induced constipation; N95.2 Postmenopausal atrophic vaginitis
CPT/HCPCS: 36415; 71260; 74177; 80053; 81001; 84436; 84443; 85025; 87210; 87491; 87591; 99283; 99284; Q9967